=== PATIENT | male | born 1945 | race Caucasian/White ===

== ENCOUNTER 2017-09-03 09:42 | Inpatient (IN) | payer OTHER ==
[~2017-09-03] VITALS: Ht 172.7 cm; Wt 127.0 kg
[2017-09-03] MEDS ORDERED: METFORMIN HCL500 M2 (09:57)
[2017-09-03] MEDS ORDERED: OMEPRAZOLE40 MG (09:57)
[2017-09-03] MEDS ORDERED: SYNTHROID50 MCG (09:58)
[2017-09-03] MEDS ORDERED: TENORMIN50 M1 (09:58)
[2017-09-03] MEDS ORDERED: COZAAR100 MG (09:59)
[2017-09-03] MEDS ORDERED: LIPITOR20 MG (09:59)
[2017-09-21] MEDS ORDERED: TAMSULOSIN HCL0.4 MG PO (10:34)
[2017-09-21] MEDS ORDERED: LEVOTHYROXINE50 MCG PO (10:34)
[2017-09-21] MEDS ORDERED: XARELTO15 MG PO (10:34)
[2017-09-21] MEDS ORDERED: LIPITOR20 MG PO (10:34)
== END 2017-09-21 19:47 | DRG 480 ==
LOC: ER 09:42 → MEDI 18:40 → O/R 09-11 17:24 → ICU 09-11 19:36 → SURH 09-14 17:57
PROVIDERS: Orthopaedic Surgery
PROC: B246ZZZ Ultrasonography of Right and Left Heart (ICD-10-PCS; 2017-09-03)
PROC: 6A550Z2 Pheresis of Platelets, Single (ICD-10-PCS; 2017-09-09)
PROC: 0QR Lower Bones, Replacement (ICD-10-PCS; 2017-09-10)
PROC: 0QS606Z Reposition Right Upper Femur with Intramedullary Internal Fixation Device, Open Approach (ICD-10-PCS; principal; 2017-09-10 08:45)
PROC: 4A033R1 Measurement of Arterial Saturation, Peripheral, Percutaneous Approach (ICD-10-PCS; 2017-09-15)
PROC: 3E0F7GC Introduction of Other Therapeutic Substance into Respiratory Tract, Via Natural or Artificial Opening (ICD-10-PCS; 2017-09-16)
PROC: BW24ZZZ Computerized Tomography (CT Scan) of Chest and Abdomen (ICD-10-PCS; 2017-09-16)
DX: S72.141A Displaced intertrochanteric fracture of right femur, initial encounter for closed fracture (principal); J18.9 Pneumonia, unspecified organism; I48.3 Typical atrial flutter; D68.8 Other specified coagulation defects; J95.89 Other postprocedural complications and disorders of respiratory system, not elsewhere classified; J90 Pleural effusion, not elsewhere classified; W01.0XXA Fall on same level from slipping, tripping and stumbling without subsequent striking against object, initial encounter; Y93.89 Activity, other specified; Y92.098 Other place in other non-institutional residence as the place of occurrence of the external cause; Y99.8 Other external cause status; I10 Essential (primary) hypertension; E03.8 Other specified hypothyroidism; I35.0 Nonrheumatic aortic (valve) stenosis; I34.0 Nonrheumatic mitral (valve) insufficiency; I27.29 Other secondary pulmonary hypertension; D69.59 Other secondary thrombocytopenia; E88.09 Other disorders of plasma-protein metabolism, not elsewhere classified; I95.81 Postprocedural hypotension; I48.0 Paroxysmal atrial fibrillation; R09.02 Hypoxemia

== ENCOUNTER 2017-11-02 17:32 | Outpatient (CLI) | payer OTHER ==
[~2017-11-02 17:32] MED LIST: COZAAR100 MG; LEVOTHYROXINE50 MCG PO; LIPITOR20 MG; LIPITOR20 MG PO; METFORMIN HCL500 M2; OMEPRAZOLE40 MG; SYNTHROID50 MCG; TAMSULOSIN HCL0.4 MG PO; TENORMIN50 M1; XARELTO15 MG PO
== END 2017-11-02 17:38 | disposition home or self-care (01) ==
LOC: RAD 17:32
DX: S72.141D Displaced intertrochanteric fracture of right femur, subsequent encounter for closed fracture with routine healing (principal)

== ENCOUNTER 2017-11-12 09:06 | Outpatient (CLI) | payer OTHER | END 2017-11-12 12:34 | disposition home or self-care (01) | LOC: LAB 09:06 | DX: E55.9 Vitamin D deficiency, unspecified (principal); E85.8 Other amyloidosis; E21.2 Other hyperparathyroidism; E88.89 Other specified metabolic disorders; M81.8 Other osteoporosis without current pathological fracture; E83.42 Hypomagnesemia; E56.1 Deficiency of vitamin K; E03.8 Other specified hypothyroidism ==

== ENCOUNTER 2017-12-15 14:14 | Outpatient (CLI) | payer OTHER | END 2017-12-15 14:20 | disposition home or self-care (01) | LOC: NUCLEAR 14:14 | DX: M81.0 Age-related osteoporosis without current pathological fracture (principal) ==

== ENCOUNTER 2017-12-15 15:33 | Outpatient (CLI) | payer OTHER | END 2017-12-15 15:39 | disposition home or self-care (01) | LOC: RAD 15:33 | DX: S72.141D Displaced intertrochanteric fracture of right femur, subsequent encounter for closed fracture with routine healing (principal) ==

== ENCOUNTER → 2023-09-22 | Outpatient (CLI) | payer OTHER | END | disposition home or self-care (01) | LOC: SONOGRAMA 09:14 | PROVIDERS: ATTEND Internal Medicine Gastroenterology | DX: R10.9 Unspecified abdominal pain (principal) ==

== ENCOUNTER 2024-05-30 15:08 | Outpatient (CLI) | payer OTHER | END 2024-05-30 15:11 | disposition home or self-care (01) | LOC: RAD 15:08 | PROVIDERS: ATTEND Family Medicine Adult Medicine | DX: J44.9 Chronic obstructive pulmonary disease, unspecified (principal) ==

== ENCOUNTER 2024-07-19 08:33 | Outpatient (CLI) | payer OTHER | END 2024-07-19 08:34 | disposition home or self-care (01) | LOC: NUCLEAR 08:33 | PROVIDERS: ATTEND Family Medicine Adult Medicine | DX: M89.8X8 Other specified disorders of bone, other site (principal); M89.9 Disorder of bone, unspecified | CPT/HCPCS: 78306; A9503 ==

== ENCOUNTER 2024-11-21 08:34 | Outpatient (CLI) | payer OTHER | END 2024-11-21 08:36 | disposition home or self-care (01) | LOC: SONOGRAMA 08:34 | PROVIDERS: ATTEND Family Medicine Adult Medicine | DX: D18.03 Hemangioma of intra-abdominal structures (principal); R74.8 Abnormal levels of other serum enzymes ==